=== PATIENT | male | born 1955 | race Caucasian/White ===

== ENCOUNTER 2020-09-14 12:05 | Emergency (ER) | payer MEDICARE, OTHER ==
[~2020-09-14] VITALS: Ht 167.6 cm; Wt 67.5 kg
--- NOTE | 2020-09-14 12:15 | NUR ---
BIB [facility] FROM HOME. PT C/O INTERMITENT FATIGUE, GEN WEAKNESS, NAUSEA X1 MONTH. [employer] [facility]: PIV 20G RAC, 4 ZOFRAN PT HAS BEEN TRAVELING MULTIPLE TIMES RECENTLY. NOT FEELING WELL OVER LAST MONTH AND WORSE TO DAY. PT HAS ANXIETY WHEN NOT FEELING GOOD. PT CONNECTED TO MONITORING. GF AT BEDSIDE. CALL LIGHT IN REACH.
--- NOTE | 2020-09-14 12:16 | NUR ---
EKG COMPLETE UPON ARRIVAL.
[2020-09-14 13:22] LABS: BASOPHILS % (AUTO) 1 % (0-1); EOSINOPHILS % (AUTO) 1 % (1-7); LYMPHOCYTES % (AUTO) 17 % (22-44); MEAN CORPUSCULAR HEMOGLOBIN 32.3 pg (27.5-34.5); MEAN CORPUSCULAR HGB CONC 34.2 g/dL (33.2-36.2); MEAN PLATELET VOLUME 7.9 fL (7.4-10.4); MONOCYTES % (AUTO) 8 % (2-9); NEUTROPHILS % (AUTO) 75 % (42-75); PLATELET COUNT 261 x10^3/uL (130-400); RED BLOOD COUNT 5.09 x10^6/uL (4.38-5.82); RED CELL DISTRIBUTION WIDTH 12.6 % (9.4-14.8)
[2020-09-14 13:23] LABS: ANION GAP 3 mmol/L (5-15); CALCIUM 8.7 mg/dL (8.5-10.1); CHLORIDE 106 mmol/L (98-107)
[2020-09-14 13:35] LABS: ALANINE AMINOTRANSFERASE 18 U/L (12-78); ALKALINE PHOSPHATASE 56 U/L (45-117); BILIRUBIN,TOTAL 1.4 mg/dL (0.2-1.0); CREATINE KINASE, TOTAL 176 U/L (39-308); CREATININE 1.01 mg/dL (0.7-1.3); TOTAL PROTEIN 7.4 g/dL (6.4-8.2)
[2020-09-14 13:50] LABS: MD NO
[2020-09-14] MEDS ORDERED: OMNIPAQUE 350 MG/ML, 100ML BOTTLE ONE (14:10)
--- NOTE | 2020-09-14 14:24 | NUR ---
ALL RESULTS ARE BACK AT THIS TIME. CHART UP FOR RECHECK.
[2020-09-14 14:26] VITALS: BP 120/67
--- NOTE | 2020-09-14 14:32 | NUR ---
MD AT BEDSIDE TO UPDATE PT ON POC.
== END 2020-09-14 15:00 | disposition home or self-care (01) ==
LOC: ED 14:45
DX: R10.84 Generalized abdominal pain (principal); K21.9 Gastro-esophageal reflux disease without esophagitis; R42 Dizziness and giddiness; R53.1 Weakness; E78.00 Pure hypercholesterolemia, unspecified
CPT/HCPCS: 36415; 74177; 80053; 82550; 84443; 85025; 93005; 99285; Q9967

== ENCOUNTER 2020-10-07 11:38 | Emergency (ER) | payer MEDICARE, OTHER ==
[~2020-10-07] VITALS: Ht 167.6 cm; Wt 64.5 kg
[2020-10-07 12:15] LABS: BASOPHILS % (AUTO) 0 % (0-1); EOSINOPHILS % (AUTO) 0 % (1-7); LYMPHOCYTES % (AUTO) 12 % (22-44); MEAN CORPUSCULAR HEMOGLOBIN 32.2 pg (27.5-34.5); MEAN CORPUSCULAR HGB CONC 34.6 g/dL (33.2-36.2); MEAN PLATELET VOLUME 7.7 fL (7.4-10.4); MONOCYTES % (AUTO) 6 % (2-9); NEUTROPHILS % (AUTO) 81 % (42-75); PLATELET COUNT 258 x10^3/uL (130-400); RED BLOOD COUNT 5.11 x10^6/uL (4.38-5.82); RED CELL DISTRIBUTION WIDTH 12.7 % (9.4-14.8)
[2020-10-07 12:19] LABS: MD NO
[2020-10-07 12:27] LABS: ALANINE AMINOTRANSFERASE 18 U/L (12-78); ALBUMIN 4.1 g/dL (3.4-5.0); ANION GAP 4 mmol/L (5-15); CALCIUM 9.2 mg/dL (8.5-10.1); CHLORIDE 107 mmol/L (98-107)
[2020-10-07 12:29] LABS: ALKALINE PHOSPHATASE 46 U/L (45-117); BILIRUBIN,TOTAL 0.9 mg/dL (0.2-1.0); TOTAL PROTEIN 7.3 g/dL (6.4-8.2)
--- NOTE | 2020-10-07 14:19 | NUR ---
IV STARTED, PLAN OF CARE DISCUSSED, AWAITING CT SCAN. PT STATES ABDOMINAL PAIN IS 2/10 AT THIS ITME. AWAITING RESULTS.
[2020-10-07] MEDS ORDERED: SODIUM CHLORIDE FLUSH 10ML SYR IVF ONE (14:30)
[2020-10-07] MEDS ORDERED: OMNIPAQUE 350 MG/ML, 100ML BOTTLE ONE (14:45)
--- NOTE | 2020-10-07 15:20 | NUR ---
pt discharged home with girlfriend. pt understands th eimportance of taking a stool softener with narcotics.
[2020-10-07 15:21] VITALS: BP 134/68
== END 2020-10-07 15:24 | disposition home or self-care (01) ==
LOC: ED 13:50
DX: R10.32 Left lower quadrant pain (principal)
CPT/HCPCS: 36415; 74177; 80053; 83690; 85025; 99285; Q9967

== ENCOUNTER → 2020-11-27 | Outpatient (CLI) | payer MEDICARE, OTHER | END | disposition home or self-care (01) | LOC: RAD 10:47 | PROVIDERS: ATTEND Internal Medicine | DX: R10.12 Left upper quadrant pain (principal) | CPT/HCPCS: 78227; A9537; J2805 ==